=== PATIENT | female | born 1945 | race Two or more races ===

== ENCOUNTER 2018-06-05 23:41 | Emergency (ER) | payer OTHER ==
[~2018-06-05] VITALS: Ht 152.4 cm; Wt 63.0 kg
[~2018-06-05 23:41] MED LIST: AVALIDE 300-251 TAB; DILACOR XR240 MG; JANUVIA50 MG; ZETIA10 MG
[2018-06-06] MEDS ORDERED: BUTALB-ACETAMI1 EACH PO (05:18)
== END 2018-06-06 05:39 | disposition home or self-care (01) ==
LOC: ER 23:41
DX: I16.0 Hypertensive urgency (principal); I10 Essential (primary) hypertension; R51 Headache; D72.828 Other elevated white blood cell count